=== PATIENT | female | born 1950 | race African-American/Black ===

== ENCOUNTER 2021-10-23 10:29 | Emergency (ER) | payer BC ==
--- OUTSIDE RECORDS SUMMARY | 2021-10-23 10:34 | XMS REPORT | Continuity of Care Document ---
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 weeks, then twice weekly for four weeks Clobetasol Yes [id number] Apply a Macie Propionate 5-03 small Seybold 0.05 % 00:00: amount to apply 00 affected externally area at Ointment night for four weeks, then every other night for four weeks, then twice weekly for four weeks Clobetasol Yes [id number] Apply a Macie Propionate 5-03 small Seybold 0.05 % 00:00: amount to apply 00 affected externally area at Ointment night for four weeks, then every other night for four weeks, then twice weekly for four weeks Clobetasol Yes [id number] Apply a Macie Propionate 5-03 small Seybold 0.05 % 00:00: amount to apply 00 affected externally area at Ointment night for four weeks, then every other night for four weeks, then twice weekly for four weeks Clobetasol Yes [id number] Apply a Macie Propionate 5-03 small Seybold 0.05 % 00:00: amount to apply 00 affected externally area at Ointment night for four weeks, then every other night for four weeks, then twice weekly for four weeks Metformin Yes [id number] 1000mg Take 2 Macie HCl ER 500 4-05 tablets Seybol d MG oral 00:00: (1,000 mg TABLET SR 00 total) by 24 HR mouth 2 times daily (before meals) Metformin Yes [id number] 1000mg Take 2 Macie HCl ER 500 4-05 tablets Seybol d MG oral 00:00: (1,000 mg TABLET SR 00 total) by 24 HR mouth 2 times daily (before meals) Metformin 2021- No [id number] 1000mg Take 2 Macie HCl ER 500 4-05 01-07 tablets Seybo ld MG oral 00:00: 00:00 (1,000 mg TABLET SR 00 :00 total) by 24 HR mouth 2 times daily (before meals) Atenolol 50 Yes [id number] 50mg Take 1 Macie MG oral 3-23 tablet (50 Seybol d Tablet 00:00: mg total) 00 by mouth daily Clonidine Yes [id number] .1mg Take 1 Ke lsey HCl 0.1 MG 3-23 tablet Seybold oral Tablet 00:00: (0.1 mg 00 total) by mouth nightly NIFEdipine Yes [id number] 30mg Take 1 K elsey CR Osmotic 3-23 tablet (30 Sey bold 30 MG oral 00:00: mg total) TABLET SR 00 by mouth 24 HR daily Atenolol 50 Yes [id number] 50mg Take 1 Macie MG oral 3-23 tablet (50 Seybol d Tablet 00:00: mg total) 00 by mouth daily Clonidine Yes [id number] .1mg Take 1 Ke lsey HCl 0.1 MG 3-23 tablet Seybold oral Tablet 00:00: (0.1 mg 00 total) by mouth nightly NIFEdipine Yes [id number] 30mg Take 1 K elsey CR Osmotic 3-23 tablet (30 Sey bold 30 MG oral 00:00: mg total) TABLET SR 00 by mouth 24 HR daily Atenolol 50 Yes [id number] 50mg Take 1 Macie MG oral 3-23 tablet (50 Seybol d Tablet 00:00: mg total) 00 by mouth daily Clonidine Yes [id number] .1mg Take 1 Ke lsey HCl 0.1 MG 3-23 tablet Seybold oral Tablet 00:00: (0.1 mg 00 total) by mouth nightly Levothyroxi Yes [id number] 50ug Take 1 Macie ne Sodium 3-23 tablet (50 Seyb old 50 MCG oral 00:00: mcg total) Tablet 00 by mouth daily Lisinopril Yes [id number] 40mg Take 1 K elsey 40 MG oral 3-23 tablet (40 Sey bold Tablet 00:00: mg total) 00 by mouth daily NIFEdipine Yes [id number] 30mg Take 1 K elsey CR Osmotic 3-23 tablet (30 Sey bold 30 MG oral 00:00: mg total) TABLET SR 00 by mouth 24 HR daily Pravastatin Yes [id number] 10mg Take 1 Macie Sodium 10 3-23 tablet (10 Seyb old MG oral 00:00: mg total) Tablet 00 by mouth daily Atenolol 50 Yes [id number] 50mg Take 1 Macie MG oral 3-23 tablet (50 Seybol d Tablet 00:00: mg total) 00 by mouth daily Clonidine Yes [id number] .1mg Take 1 Ke lsey HCl 0.1 MG 3-23 tablet Seybold oral Tablet 00:00: (0.1 mg 00 total) by mouth nightly Levothyroxi Yes [id number] 50ug Take 1 Macie ne Sodium 3-23 tablet (50 Seyb old 50 MCG oral 00:00: mcg total) Tablet 00 by mouth daily Lisinopril Yes [id number] 40mg Take 1 K elsey 40 MG oral 3-23 tablet (40 Sey bold Tablet 00:00: mg total) 00 by mouth daily NIFEdipine Yes [id number] 30mg Take 1 K elsey CR Osmotic 3-23 tablet (30 Sey bold 30 MG oral 00:00: mg total) TABLET SR 00 by mouth 24 HR daily Pravastatin Yes [id number] 10mg Take 1 Macie Sodium 10 3-23 tablet (10 Seyb old MG oral 00:00: mg total) Tablet 00 by mouth daily Levothyroxi 2021- No [id number] 50ug Take 1 Macie ne Sodium 3-23 01-07 tablet (50 Sey bold 50 MCG oral 00:00: 00:00 mcg total) Tablet 00 :00 by mouth daily Lisinopril 2021- No [id number] 40mg Take 1 Macie 40 MG oral 3-23 01-07 tablet (40 Se ybold Tablet 00:00: 00:00 mg total) 00 :00 by mouth daily Pravastatin 2021- No [id number] 10mg Take 1 Macie Sodium 10 3-23 01-07 tablet (10 Sey bold MG oral 00:00: 00:00 mg total) Tablet 00 :00 by mouth daily Tizanidine Yes [id number] 4mg Q6H Take 1 Macie HCl 4 MG 3-04 4 tablet (4 Seybol d oral Tablet 00:00: mg total) 00 by mouth every 6 hours as needed for muscle spasms (while at home and test self for drowsiness before driving) Tizanidine 2021- No [id number] 4mg Q6H Take 1 Macie HCl 4 MG 3-04 01-04 4 tablet (4 Seybo ld oral Tablet 00:00: 00:00 mg total) 00 :00 by mouth every 6 hours as needed for muscle spasms (while at home and test self for drowsiness before driving) Glimepiride 1-0 Yes 4mg Take 1 Lashay ey 4 MG oral 1-11 tablet (4 Seybo ld Tab 00:00: mg total) 00 by mouth every morning (before breakfast) Ergocalcife 1-0 Yes [id number] Take 1 Ke lsey rol 1.25 MG 1-11 capsule Seybo ld (54468 UT) 00:00: (50,000 oral Cap 00 units total) by mouth once a week For 12 weeks. Glimepiride 2020-0 Yes 4mg Take 1 Lashay ey 4 MG oral 1-11 tablet (4 Seybo ld Tab 00:00: mg total) 00 by mouth every morning (before breakfast) Glimepiride 2020-0 2022- No 4mg Take 1 Salvador sey 4 MG oral 1-11 -07 tablet (4 Seyb old Tab 00:00: 00:00 mg total) 00 :00 by mouth every morning (before breakfast) Ergocalcife 2020-0 2022- No [id number] Take 1 K elsey rol 1.25 MG 1-11 -04 capsule Seyb old (47056 UT) 00:00: 00:00 (50,000 oral Cap 00 :00 units total) by mouth once a week For 12 weeks. Exenatide 2020-0 Yes [id number] 2mg Inject 2 Macie ER 1-05 mg into Seybold (Bydureon 00:00: the skin BCise) 2 00 once a MG/0.85ML week subcutaneou s Auto-inject or Exenatide 2020-0 Yes [id number] 2mg Inject 2 Macie ER 1-05 mg into Seybold (Bydureon 00:00: the skin BCise) 2 00 once a MG/0.85ML week subcutaneou s Auto-inject or Exenatide 2020-0 2022- No [id number] 2mg Inject 2 Macie ER 1-05 01-07 mg into Seybold (Bydureon 00:00: 00:00 the skin BCise) 2 00 :00 once a MG/0.85ML week subcutaneou s Auto-inject or Continuous 2020-0 Yes Use as Kelse y Blood Gluc 3-26 directed Seybo ld Deckhand 00:00: for (FREESTYLE 00 continuous ANALIA 14 glucose DAY READER) monitoring does not apply Device Continuous 2020-0 Yes Use as Kelse y Blood Gluc 3-26 directed Seybo ld Sensor 00:00: for (FREESTYLE 00 continuous ANALIA 14 glucose DAY SENSOR) monitoring does not with Analia apply Misc sytem Glucose 2020-0 Yes Use as Macie Blood 3-26 directed Seybold (FREESTYLE 00:00: for PRECISION 00 continuous BRANDAN TEST) glucose in vitro monitoring Strip with Analia system Ostomy 2020-0 Yes Use as Macie Supplies 3-26 directed Seybold (SKIN TAC 00:00: for ADHESIVE 00 continuous BARRIER glucose WIPE) does monitoring not apply with Analia Misc system Continuous 2020-0 Yes Use as Kelse y Blood Gluc 3-26 directed Seybo ld Deckhand 00:00: for (FREESTYLE 00 continuous ANALIA 14 glucose DAY READER) monitoring does not apply Device Continuous 2020-0 Yes Use as Kelse y Blood Gluc 3-26 directed Seybo ld Deckhand 00:00: for (FREESTYLE 00 continuous ANALIA 14 glucose DAY READER) monitoring does not apply Device Continuous 2020-0 Yes Use as Kelse y Blood Gluc 3-26 directed Seybo ld Sensor 00:00: for (FREESTYLE 00 continuous ANALIA 14 glucose DAY SENSOR) monitoring does not with Analia apply Misc sytem Glucose 2020-0 Yes Use as Macie Blood 3-26 directed Seybold (FREESTYLE 00:00: for PRECISION 00 continuous BRANDAN TEST) glucose in vitro monitoring Strip with Analia system Ostomy 2020-0 Yes Use as Macie Supplies 3-26 directed Seybold (SKIN TAC 00:00: for ADHESIVE 00 continuous BARRIER glucose WIPE) does monitoring not apply with Analia Misc system Continuous 2020-0 Yes Use as Kelse y Blood Gluc 3-26 directed Seybo ld Deckhand 00:00: for (FREESTYLE 00 continuous ANALIA 14 glucose DAY READER) monitoring does not apply Device Continuous 2020-0 Yes Use as Kelse y Blood Gluc 3-26 directed Seybo ld Sensor 00:00: for (FREESTYLE 00 continuous ANALIA 14 glucose DAY SENSOR) monitoring does not with Analia apply Misc sytem Glucose Yes Use as Macie Blood 3-26 directed Seybold (FREESTYLE 00:00: for PRECISION 00 continuous BRANDAN TEST) glucose in vitro monitoring Strip with Analia system Ostomy Yes Use as Macie Supplies 3-26 directed Seybold (SKIN TAC 00:00: for ADHESIVE 00 continuous BARRIER glucose WIPE) does monitoring not apply with Analia Misc system Continuous 2021- No Use as Lashay ey Blood Gluc 3-26 04-25 directed Seyb old Deckhand 00:00: 00:00 for (FREESTYLE 00 :00 continuous ANALIA 14 glucose DAY READER) monitoring does not apply Device Continuous 2021- No Use as Lashay ey Blood Gluc 3-26 - directed Seyb old Sensor 00:00: 00:00 for (FREESTYLE 00 :00 continuous ANALIA 14 glucose DAY SENSOR) monitoring does not with Analia apply Misc sytem Glucose 2021- No Use as Macie Blood 3-26 - directed Seybold (FREESTYLE 00:00: 00:00 for PRECISION 00 :00 continuous BRANDAN TEST) glucose in vitro monitoring Strip with Analia system Ostomy 2021- No Use as Macie Supplies 3-26 02- directed Seybol d (SKIN TAC 00:00: 00:00 for ADHESIVE 00 :00 continuous BARRIER glucose WIPE) does monitoring not apply with Analia Misc system Clotrimazol 2017-05 Yes APPLY Kelse y e-Betametha 1-21 TOPICALLY Sey bold sone 1-0.05 00:00: TO % apply 00 AFFECTED externally AREA EVERY Cream DAY NEEDED OVER VULVAR AREA Clotrimazol 2017-05- No APPLY Lashay ey e-Betametha 1-21 01-04 TOPICALLY Se ybold sone 1-0.05 00:00: 00:00 TO % apply 00 :00 AFFECTED externally AREA EVERY Cream DAY NEEDED OVER VULVAR AREA Glucose Yes [id number] As Macie Blood in 6-08 Instructed Seybo ld vitro Strip 00:00: tid 00 Glucose Yes [id number] As Macie Blood in 6-08 Instructed Seybo ld vitro Strip 00:00: tid 00 Glucose Yes [id number] As Macie Blood in 10-16 Instructed Seybo ld vitro Strip 00:00: tid 00 Glucose 2021- No [id number] As Kelse y Blood in 10-16 Instructed Seyb old vitro Strip 00:00: 00:00 tid 00 :00 Immunizations Ordered Immunization Filled Immunization Date Status Commen ts Source Name Name Liza IM (Shingrix) 2021-09-13 Completed Christian spanney Seybold 00:00:00 Influenza Virus 2020-02-01 Completed Macie Se ybold Vaccine, Quadrivalent, 00:00:00 High Dose, Age 65 And Up Pneumococcal Vaccine, 2020-02-01 Completed Salvador sey Seybold Polysaccharide 00:00:00 Influenza Virus 2020-02-01 Completed Macie Se ybold Vaccine, Quadrivalent, 00:00:00 High Dose, Age 65 And Up Pneumococcal Vaccine, 2020-02-01 Completed Salvador sey Seybold Polysaccharide 00:00:00 Influenza Virus 2020-02-01 Completed Macie Se ybold Vaccine, Quadrivalent, 00:00:00 High Dose, Age 65 And Up Pneumococcal Vaccine, 2020-02-01 Completed Salvador sey Seybold Polysaccharide 00:00:00 Influenza Virus 2020-02-01 Completed Macie Se ybold Vaccine, Quadrivalent, 00:00:00 High Dose, Age 65 And Up Pneumococcal Vaccine, 2020-02-01 Completed Salvador sey Seybold Polysaccharide 00:00:00 Influenza Virus 2020-02-01 Completed Amcie Se ybold Vaccine, Quadrivalent, 00:00:00 High Dose, Age 65 And Up Pneumococcal Vaccine, 2020-02-01 Completed Salvador sey Seybold Polysaccharide 00:00:00 Influenza Virus 2020-02-01 Completed Macie Se ybold Vaccine, Quadrivalent, 00:00:00 High Dose, Age 65 And Up Pneumococcal Vaccine, 2020-02-01 Completed Salvador sey Seybold Polysaccharide 00:00:00 Influenza Virus 2020-02-01 Completed Macie Se ybold Vaccine, Quadrivalent, 00:00:00 High Dose, Age 65 And Up Pneumococcal Vaccine, 2020-02-01 Completed Salvador sey Seybold Polysaccharide 00:00:00 Influenza Virus 2020-02-01 Completed Macie Se ybold Vaccine, Quadrivalent, 00:00:00 High Dose, Age 65 And Up Pneumococcal Vaccine, 2020-02-01 Completed Salvador sey Seybold Polysaccharide 00:00:00 Pneumococcal Vaccine, 2016-02-20 Completed Salvador sey Seybold Conjugate 13 00:00:00 Influenza Virus 2016-02-20 Completed Macie Se ybold Vaccine, High Dose, 00:00:00 Age 65 And Up Pneumococcal Vaccine, 2016-02-20 Completed Salvador sey Seybold Conjugate 13 00:00:00 Influenza Virus 2016-02-20 Completed Macie Se ybold Vaccine, High Dose, 00:00:00 Age 65 And Up Pneumococcal Vaccine, 2016-02-20 Completed Salvador sey Seybold Conjugate 13 00:00:00 Influenza Virus 2016-02-20 Completed Macie Se ybold Vaccine, High Dose, 00:00:00 Age 65 And Up Pneumococcal Vaccine, 2016-02-20 Completed Salvador sey Seybold Conjugate 13 00:00:00 Influenza Virus 2016-02-20 Completed Macie Se ybold Vaccine, High Dose, 00:00:00 Age 65 And Up Pneumococcal Vaccine, 2016-02-20 Completed Salvador sey Seybold Conjugate 13 00:00:00 Influenza Virus 2016-02-20 Completed Macie Se ybold Vaccine, High Dose, 00:00:00 Age 65 And Up Pneumococcal Vaccine, 2016-02-20 Completed Salvador sey Seybold Conjugate 13 00:00:00 Influenza Virus 2016-02-20 Completed Macie Se ybold Vaccine, High Dose, 00:00:00 Age 65 And Up Pneumococcal Vaccine, 2016-02-20 Completed Salvador sey Seybold Conjugate 13 00:00:00 Influenza Virus 2016-02-20 Completed Macie Se ybold Vaccine, High Dose, 00:00:00 Age 65 And Up Pneumococcal Vaccine, 2016-02-20 Completed Salvador sey Seybold Conjugate 13 00:00:00 Influenza Virus 2016-02-20 Completed Macie Se ybold Vaccine, High Dose, 00:00:00 Age 65 And Up Tdap- (Boostrix, 2013-06-13 Completed Macie grullonbold Adacel) 00:00:00 Shingles SQ (Zostavax) 2013-06-13 Completed Ke lsey Seybold 00:00:00 Tdap- (Boostrix, 2013-06-13 Completed Macie Ramos eybold Adacel) 00:00:00 Shingles SQ (Zostavax) 2013-06-13 Completed Ke lsey Seybold 00:00:00 Tdap- (Boostrix, 2013-06-13 Completed Macie S eybold Adacel) 00:00:00 Shingles SQ (Zostavax) 2013-06-13 Completed Ke lsey Seybold 00:00:00 Tdap- (Boostrix, 2013-06-13 Completed Macie S eybold Adacel) 00:00:00 Shingles SQ (Zostavax) 2013-06-13 Completed Ke lsey Seybold 00:00:00 Tdap- (Boostrix, 2013-06-13 Completed Macie S eybold Adacel) 00:00:00 Shingles SQ (Zostavax) 2013-06-13 Completed Ke lsey Seybold 00:00:00 Tdap- (Boostrix, 2013-06-13 Completed Macie S eybold Adacel) 00:00:00 Shingles SQ (Zostavax) 2013-06-13 Completed Ke lsey Seybold 00:00:00 Tdap- (Boostrix, 2013-06-13 Completed Macie S eybold Adacel) 00:00:00 Shingles SQ (Zostavax) 2013-06-13 Completed Ke lsey Seybold 00:00:00 Tdap- (Boostrix, 2013-06-13 Completed Macie S eybold Adacel) 00:00:00 Shingles SQ (Zostavax) 2013-06-13 Completed Ke lsey Seybold 00:00:00 Influenza Virus 2013-05-19 Completed Macie Se ybold Vaccine, Intradermal, 00:00:00 18-64 Yrs Influenza Virus 2013-05-19 Completed Macie Se ybold Vaccine, Intradermal, 00:00:00 18-64 Yrs Influenza Virus 2013-05-19 Completed Macie Se ybold Vaccine, Intradermal, 00:00:00 18-64 Yrs Influenza Virus 2013-05-19 Completed Macie Se ybold Vaccine, Intradermal, 00:00:00 18-64 Yrs Influenza Virus 2013-05-19 Completed Macie Se ybold Vaccine, Intradermal, 00:00:00 18-64 Yrs Influenza Virus 2013-05-19 Completed Macie Se ybold Vaccine, Intradermal, 00:00:00 18-64 Yrs Influenza Virus 2013-05-19 Completed Macie Se ybold Vaccine, Intradermal, 00:00:00 18-64 Yrs Influenza Virus 2013-05-19 Completed Macie Se ybold Vaccine, Intradermal, 00:00:00 18-64 Yrs Pneumococcal Vaccine, 2011-05-19 Completed Salvador sey Seybold Polysaccharide 00:00:00 Pneumococcal Vaccine, 2011-05-19 Completed Salvador sey Seybold Polysaccharide 00:00:00 Pneumococcal Vaccine, 2011-05-19 Completed Salvador sey Seybold Polysaccharide 00:00:00 Pneumococcal Vaccine, 2011-05-19 Completed Salvador sey Seybold Polysaccharide 00:00:00 Pneumococcal Vaccine, 2011-05-19 Completed Salvador sey Seybold Polysaccharide 00:00:00 Pneumococcal Vaccine, 2011-05-19 Completed Salvador sey Seybold Polysaccharide 00:00:00 Pneumococcal Vaccine, 2011-05-19 Completed Salvador sey Seybold Polysaccharide 00:00:00 Pneumococcal Vaccine, 2011-05-19 Completed Salvador sey Seybold Polysaccharide 00:00:00 Influenza Virus 2011-01-22 Completed Macie Se ybold Vaccine, age 6 months 00:00:00 and up Influenza Virus 2011-01-22 Completed Macie Se ybold Vaccine, age 6 months 00:00:00 and up Influenza Virus 2011-01-22 Completed Macie Se ybold Vaccine, age 6 months 00:00:00 and up Influenza Virus 2011-01-22 Completed Macie Se ybold Vaccine, age 6 months 00:00:00 and up Influenza Virus 2011-01-22 Completed Macie Se ybold Vaccine, age 6 months 00:00:00 and up Influenza Virus 2011-01-22 Completed Macie Se ybold Vaccine, age 6 months 00:00:00 and up Influenza Virus 2011-01-22 Completed Macie Se ybold Vaccine, age 6 months 00:00:00 and up Influenza Virus 2011-01-22 Completed Macie Se ybold Vaccine, age 6 months 00:00:00 and up Influenza Virus 2009-01-22 Completed Macie Se ybold Vaccine, age 6 months 00:00:00 and up Influenza Virus 2009-01-22 Completed Macie Se ybold Vaccine, age 6 months 00:00:00 and up Influenza Virus 2009-01-22 Completed Macie Se ybold Vaccine, age 6 months 00:00:00 and up Influenza Virus 2009-01-22 Completed Macie Se ybold Vaccine, age 6 months 00:00:00 and up Influenza Virus 2009-01-22 Completed Macie Se ybold Vaccine, age 6 months 00:00:00 and up Influenza Virus 2009-01-22 Completed Macie Se ybold Vaccine, age 6 months 00:00:00 and up Influenza Virus 2009-01-22 Completed Macie Se ybold Vaccine, age 6 months 00:00:00 and up Influenza Virus 2009-01-22 Completed Macie Se ybold Vaccine, age 6 months 00:00:00 and up Influenza Virus 2008-05-10 Completed Macie Se ybold Vaccine, age 6 months 00:00:00 and up Influenza Virus 2008-05-10 Completed Macie Se ybold Vaccine, age 6 months 00:00:00 and up Influenza Virus 2008-05-10 Completed Macie Se ybold Vaccine, age 6 months 00:00:00 and up Influenza Virus 2008-05-10 Completed Macie Se ybold Vaccine, age 6 months 00:00:00 and up Influenza Virus 2008-05-10 Completed Macie Se ybold Vaccine, age 6 months 00:00:00 and up Influenza Virus 2008-05-10 Completed Macie Se ybold Vaccine, age 6 months 00:00:00 and up Influenza Virus 2008-05-10 Completed Macie Se ybold Vaccine, age 6 months 00:00:00 and up Influenza Virus 2008-05-10 Completed Macie Se ybold Vaccine, age 6 months 00:00:00 and up Vital Signs Vital Name Observation Time Observation Value Comments Source Systolic blood pressure 2021-09-25 13:21:00 124 mm[Hg] Macie Seybold Diastolic blood 2021-09-25 13:21:00 72 mm[Hg] Salvadorse y Seybold pressure Heart rate 2021-09-25 13:21:00 83 /min Macie valderrama Body temperature 2021-09-25 13:21:00 36.83 Tamy Lashay grullon Seybpraneeth Respiratory rate 2021-09-25 13:21:00 14 /min Lashay yadi Brownybpraneeth Body height 2021-09-25 13:21:00 160 cm Macie valderrama Body weight 2021-09-25 13:21:00 76.023 kg Macie valderrama BMI 2021-09-25 13:21:00 29.69 kg/m2 Macie S eybold Oxygen saturation in 2021-09-25 13:21:00 99 /min Macie Huang Arterial blood by Pulse oximetry Systolic blood pressure 2021-09-23 13:54:00 130 mm[Hg] Macie Seybold Diastolic blood 2021-09-23 13:54:00 80 mm[Hg] Kelse y Seybold pressure Heart rate 2021-09-23 13:54:00 80 /min Macie S eybold Body temperature 2021-09-23 13:54:00 36.89 Tamy Lashay ey Seybold Respiratory rate 2021-09-23 13:54:00 17 /min Lashay ey Seybold Body height 2021-09-23 13:54:00 160 cm Macie S eybold Body weight 2021-09-23 13:54:00 75.66 kg Macie S eybold BMI 2021-09-23 13:54:00 29.55 kg/m2 Macie S eybold Respiratory rate 2021-09-12 18:21:00 16 /min Lashay ey Seybold Body height 2021-09-12 18:21:00 160 cm Macie S eybold Body weight 2021-09-12 18:21:00 76.204 kg Macie S eybold BMI 2021-09-12 18:21:00 29.76 kg/m2 Macie S eybold Systolic blood pressure 2021-09-02 19:42:00 112 mm[Hg] Macie Seybold Diastolic blood 2021-09-02 19:42:00 68 mm[Hg] Kelse y Seybold pressure Heart rate 2021-09-02 19:42:00 76 /min Macie S eybold Body temperature 2021-09-02 19:42:00 36.56 Tamy Lashay ey Seybold Respiratory rate 2021-09-02 19:42:00 16 /min Lashay ey Seybold Body height 2021-09-02 19:42:00 160 cm Macie S eybold Body weight 2021-09-02 19:42:00 76.567 kg Macie S eybold BMI 2021-09-02 19:42:00 29.90 kg/m2 Macie S eybold Systolic blood pressure 2021-07-02 17:35:00 128 mm[Hg] Macie Seybold Diastolic blood 2021-07-02 17:35:00 64 mm[Hg] Kelse y Seybold pressure Heart rate 2021-07-02 17:35:00 60 /min Macie S eybold Body temperature 2021-07-02 17:35:00 36.56 Tamy Lashay ey Seybold Respiratory rate 2021-07-02 17:35:00 16 /min Lashay ey Seybold Body height 2021-07-02 17:35:00 160 cm Macie S eybold Body weight 2021-07-02 17:35:00 74.481 kg Macie S eybold BMI 2021-07-02 17:35:00 29.09 kg/m2 Macie S eybold Systolic blood pressure 2021-05-17 15:42:00 124 mm[Hg] Macie Seybold Diastolic blood 2021-05-17 15:42:00 68 mm[Hg] Kelse y Seybold pressure Heart rate 2021-05-17 15:42:00 72 /min Macie S eybold Respiratory rate 2021-05-17 15:42:00 16 /min Lashay ey Seybold Body height 2021-05-17 15:42:00 160 cm Macie S eybold Body weight 2021-05-17 15:42:00 76.023 kg Macie S eybold BMI 2021-05-17 15:42:00 29.69 kg/m2 Macie S eybold Systolic blood pressure 2021-05-14 21:16:00 144 mm[Hg] Macie Seybold Diastolic blood 2021-05-14 21:16:00 74 mm[Hg] Kelse y Seybold pressure Heart rate 2021-05-14 21:16:00 64 /min Macie S eybold Body temperature 2021-05-14 21:16:00 37.22 Tamy Lashay ey Seybold Respiratory rate 2021-05-14 21:16:00 16 /min Lashay ey Seybold Body height 2021-05-14 21:16:00 157.5 cm Macie S eybold Body weight 2021-05-14 21:16:00 75.751 kg Macie grullonbosarkis BMI 2021-05-14 21:16:00 30.54 kg/m2 Macie grullonbosarkis Systolic blood pressure 2021-04-29 15:06:00 120 mm[Hg] Macie Huang Diastolic blood 2021-04-29 15:06:00 60 mm[Hg] Kelse y Seybold pressure Heart rate 2021-04-29 15:06:00 61 /min Macie valderrama Body temperature 2021-04-29 15:06:00 36.67 Tamy Lashay Huang Respiratory rate 2021-04-29 15:06:00 18 /min Lashay Huang Body height 2021-04-29 15:06:00 157.5 cm Macie grullonbosarkis Body weight 2021-04-29 15:06:00 75.025 kg Macie grullonbosarkis BMI 2021-04-29 15:06:00 30.25 kg/m2 Macie valderrama Procedures Procedure Date / Time Performed Performing Clinician Sour e REAGENT STRIP/BLOOD GLUCOSE 2021-05-17 15:42:00 Outside, Reporte ying Macie Huang Encounters Start End Encounter Admission Attending Care Care Encounter Source Date/Time Date/Time Type Type Clinicians Facility Department ID 2022-01-06 2022-01-06 Outpatient MACIE SHEPHERD [id number] Macie 16:45:00 16:45:00 AZUL Seybol d 2021-10-31 2021-10-31 Outpatient MACIE MURRAY [id number] Macie 07:30:00 07:30:00 KRYSTINA Seybol d 2021-10-24 2021-10-24 Outpatient MACIE GARRIDO [id number] Macie 08:30:00 08:30:00 BABYLYN Seybol d 2021-10-23 2021-10-23 Outpatient MACIE CRAIN [id number] Macie 09:00:00 09:00:00 JEFRY Seybol d 2021-10-23 2021-10-23 Outpatient MACIE MURRAY [id number] Macie 07:30:00 07:30:00 KRYSTINA Seybol d 2021-10-23 2021-10-23 Outpatient TREVORMACIE [id number] Macie 00:00:00 00:00:00 KRYSTINA Seybol d 2021-10-23 2021-10-23 Outpatient MACIE CRAIN [id number] Macie 00:00:00 00:00:00 JEFRY Seybol d 2021-10-22 2021-10-22 Outpatient MACIE MORALES [id number] Macie 00:00:00 00:00:00 TECELIA Seybol d 2021-10-16 2021-10-16 Outpatient MACIE MORALES [id number] Macie 00:00:00 00:00:00 TECELIA Seybol d 2021-10-14 2021-10-14 Outpatient MACIE COLLINS [id number] Macie 10:00:00 10:00:00 LESLI Reddy bold 2021-10-09 2021-10-09 Outpatient MACIE MORALES [id number] Macie 00:00:00 00:00:00 TECELIA Seybol d 2021-10-08 2021-10-08 Outpatient MACIE GARRIDO [id number] Macie 00:00:00 00:00:00 BABYLYN Seybol d 2021-10-03 2021-10-03 Outpatient LYN HENRY [id number] Macie 00:00:00 00:00:00 MD MG Seybol d 2021-09-30 2021-09-30 Outpatient MACIE COLLINS [id number] Macie 10:00:00 10:00:00 LESLI Reddy bold 2021-09-25 2021-09-25 Outpatient LAB90 MACIE HENRY [id number] Macie 09:00:00 09:00:00 Seybol d 2021-09-25 2021-09-25 Office Roshan Crain [id number] Macie 08:15:00 08:45:00 Visit Jefry Solares [id number] Se ramona Pryor [id number] 2021-09-23 2021-09-23 Outpatient LAB45 MACIE HENRY [id number] Macie 09:25:00 09:25:00 Seybol d 2021-09-23 2021-09-23 Office CarlosJENNIFER wheatley MACK [id number] Macie 08:45:00 09:00:00 Visit Pepe TORRES & 350.1..13 ybold DIAGNOSJESSICA [id number] [facility] [id number] 2021-09-23 2021-09-23 Outpatient MACIE PADRON [id number] Macie 00:00:00 00:00:00 PEPE Seybol d 2021-09-20 2021-09-20 Outpatient MACIE GARRIDO [id number] [place] 08:30:00 08:30:00 BABYLYN Seybol d 2021-09-20 2021-09-20 Outpatient MACIE PHILLIP [id number] [place] 00:00:00 00:00:00 TROISHEL Seybo ld 2021-09-18 2021-09-18 Outpatient MACIE MURRAY [id number] [place] 07:45:00 07:45:00 KRYSTINA Seybol d 2021-09-18 2021-09-18 Outpatient MACIE MURRAY [id number] [place] 07:30:00 07:30:00 KRYSTINA Seybol d 2021-09-17 2021-09-17 Outpatient MACIE MURRAY [id number] [place] 08:00:00 08:00:00 KRYSTINA Seybol d 2021-09-12 2021-09-12 Office KASSANDRA Cortez [id number] [place] 13:10:00 13:20:00 Visit Travis VALE 350.1..13 S jannie [id number] 2021-09-03 2021-09-03 Outpatient MACIE GARRIDO [id number] [place] 11:00:00 11:00:00 BABYLYN Seybol d 2021-09-02 2021-09-02 Office ADALI Shepherd [id number] [place] 14:45:00 15:00:00 Visit Azul D [id number] Se ybold [id number] 2021-09-02 2021-09-02 Outpatient LAB90 MACIE HENRY [id number] [place] 08:35:00 08:35:00 Seybol d 2021-08-27 2021-08-27 Outpatient MACIE JUAREZ [id number] [place] 08:30:00 08:30:00 LADI Seybol d 2021-08-27 2021-08-27 Outpatient LYN HENRY [id number] [place] 00:00:00 00:00:00 MD MG Seybol d 2021-08-26 2021-08-26 Outpatient MACIE JUAREZ [id number] [place] 11:00:00 11:00:00 LADI Seybol d 2021-08-22 2021-08-22 Outpatient MACIE MURRAY [id number] [place] 08:00:00 08:00:00 KRYSTINA Seybol d 2021-08-14 2021-08-14 Outpatient MACIE SHEPHERD [id number] [place] 11:15:00 11:15:00 AZUL Seybol d 2021-08-06 2021-08-06 Outpatient MACIE ROSENBERG [id number] [place] 00:00:00 00:00:00 PATY Seybol d 2021-08-05 2021-08-05 Outpatient LYN HENRY [id number] [place] 00:00:00 00:00:00 MD MG Seybol d 2021-07-30 2021-07-30 Outpatient HIPOLITO HENRY [id number] [place] 09:00:00 09:00:00 MY, Seybol d SINA 2021-07-26 2021-07-26 Outpatient MACIE MURRAY [id number] [place] 00:00:00 00:00:00 KRYSTINA Seybol d 2021-07-26 2021-07-26 Outpatient TREVORMACIE Mayes [id number] [place] 00:00:00 00:00:00 KRYSTINA Seybol d 2021-07-24 2021-07-24 Outpatient MACIE SAMANIEGO [id number] [place] 12:45:00 12:45:00 SHAJUAN Seybol d 2021-07-24 2021-07-24 Outpatient MACIE SAMANIEGO [id number] [place] 00:00:00 00:00:00 SHAJUAN Seybol d 2021-07-23 2021-07-23 Outpatient MACIE GARRIDO [id number] [place] 11:00:00 11:00:00 BABYLYN Seybol d 2021-07-16 2021-07-16 Outpatient MACIE GARRIDO [id number] [place] 11:00:00 11:00:00 BABYLYN Seybol d 2021-07-15 2021-07-15 Outpatient MACIE MAGANA [id number] [place] 00:00:00 00:00:00 SHERON Seybol d 2021-07-09 2021-07-09 Outpatient MACIE SHEPHERD [id number] [place] 09:00:00 09:00:00 AZUL Seybol d 2021-07-04 2021-07-04 Outpatient HIPOLITO HENRY [id number] [place] 00:00:00 00:00:00 MY Seybol ying ANDINO 2021-07-02 2021-07-02 Office JENNIFER Saldaña [id number] [place] 11:30:00 12:00:00 Visit [facility] [id number] Seybold DIAGNOSTI [id number] [facility] [id number] 2021-07-02 2021-07-02 Outpatient ATI67-[id number] MACIE HENRY [id number] [place] 08:25:00 08:25:00 Seybol d 2021-06-17 2021-06-17 Outpatient HIPOLITO HENRY [id number] [place] 00:00:00 00:00:00 Se NAVEEDybol ying ANDINO 2021-06-17 2021-06-17 Outpatient LYN MACIE HENRY [id number] [place] 00:00:00 00:00:00 MD Sang HOLLIDAYybol d 2021-05-22 2021-05-22 Outpatient MACIE CORTEZ [id number] [place] 10:20:00 10:20:00 TRAVIS Seybol d 2021-05-17 2021-05-17 Outpatient LAB45 MACIE HENRY [id number] [place] 10:05:00 10:05:00 Seybol d 2021-05-17 2021-05-17 Office JENNIFER Shepherd [id number] [place] 09:30:00 09:45:00 Visit Azul [facility] & 350.1.13.13 Seybold DIAGNOSTI [id number] [facility] [id number] 2021-05-14 2021-05-14 Outpatient LAB45 MACIE HENRY [id number] [place] 15:50:00 15:50:00 Seybol d 2021-05-14 2021-05-14 Office JENNIFER SALDAÑA [id number] [place] 15:15:00 15:15:00 Visit [facility] 350.1.13.13 Seybold DIAGNOSTI [id number] [facility] [id number] 2021-04-29 2021-04-29 Office STEPHENIE Aguilar [id number] [place] 09:15:00 09:30:00 Visit Xi Cruz [id number] Seybold [id number] 2020-11-27 2020-11-27 Outpatient MACIE SHEPHERD [id number] [place] 14:30:00 14:30:00 AZUL Seybol d 2020-11-21 2020-11-21 Outpatient [id number]-[id number] MACIE HENRY [id number] [place] 15:30:00 15:30:00 Seybol d 2020-11-21 2020-11-21 Outpatient MACIE AGUILAR [id number] [place] 14:45:00 14:45:00 XI dockery 2020-11-21 2020-11-21 Outpatient MACIE AGUILAR [id number] [place] 00:00:00 00:00:00 XI dockery Results Test Description Test Time Test Comments Results Result Comments Source REAGENT STRIP/BLOOD GLUCOSE 2021-05-17 15:42:00 Test Item Value Reference Range Interpretation Comme nts BLOOD SUGAR (test code = 431134) 333 mg/dL 65-99 A Lab Interpretation (test code = 89543-3) Abnormal Macie Huang
[2021-10-23 11:23] LABS: Absolute Lymphocytes (CBC) 1.5 K/uL (0.7-4.9); Hematocrit 36.8 % (36.0-45.0); Lymphocytes % 15.7 % (15.3-44.8); MPV 9.1 fL (7.6-11.3); RBC Red Blood Cell Count 4.19 M/uL (3.86-4.86)
[2021-10-23] MEDS ORDERED: ONDANSETRON 4 MG/2 ML VIAL ONE (11:32)
[2021-10-23] MEDS ORDERED: FAMOTIDINE 20 MG TAB ONE (11:32)
[2021-10-23] MEDS ORDERED: NA CHLORIDE 0.9% 1,000 ML ONE (11:32)
[2021-10-23 11:37] LABS: Albumin 3.8 g/dL (3.4-5.0); Bilirubin Total 0.4 mg/dL (0.2-1.0); Potassium 4.1 mmol/L (3.5-5.1); Protein, Total 8.2 g/dL (6.4-8.2)
--- NOTE | 2021-10-23 12:12 | RAD REPORT ---
EXAM DESCRIPTION: CT - Abdomen Pelvis W Contrast - 10/23/2021 11:54 am CLINICAL HISTORY: Abdominal pain, acute, nonlocalized COMPARISON: No comparisons TECHNIQUE: Biphasic, helical CT imaging of the abdomen and pelvis was performed following 100 ml non -ionic IV contrast. No oral contrast administration. All CT scans are performed using dose optimization technique as appropriate and may include automated exposure control or mA/KV adjustment according to patient size. FINDINGS: No suspicious findings in the lung bases. The liver, spleen, and pancreas show no suspicious findings. Liver attenuation is borderline fatty in filtrated. Gallbladder and biliary tree are also without suspicious finding. Symmetric renal function is seen with no hydronephrosis or suspicious renal mass. No pyelonephritis o r acute parenchymal process. Partially filled urinary bladder shows no suspicious finding. No adrenal abnormalities. Uterus and ovaries are not identifiable and presumed surgically absent. Ovaries could be atrophic. Th ere are no adnexal abnormalities. Pelvic floor laxity is present. No dilated bowel loops or bowel wall thickening. Appendix is normal. Food and fluid distend but do no t dilate the stomach. No gastric wall thickening or mass identifiable. Boyce of the antrum are not cl early outside of normal range and there is no adjacent edema or stranding in the fatty tissues. Moder ate stool volume is present filling but not dilating the entirety of the colon. No focal colon wall m ass or wall thickening seen. No free air, free fluid or inflammatory stranding. No hernia, mass or bulky lymphadenopathy. No suspicious bony findings. Chronic degenerative and scoliotic changes are present. IMPRESSION: Contrast enhanced CT abdomen and pelvis showing no acute or emergent finding. Nonacute findings detailed in the body of the report.
--- NOTE | 2021-10-23 13:41 | ER ---
Nurse's Notes [facility] Name: Yudi Farias Age: 70 yrs Sex: Female : 1950 Arrival Date: 10/23/2021 Time: 10:31 Bed 16 Private MD: Diagnosis: Abdominal pain, Generalized Presentation: 10/23 10:34 Chief complaint: Patient states: i have nausea. its been on and off for a week. today tw2 it was the worse. i have pain in the back and shoulder pain. i feel like i need to have a BM but it has been a couple of days. Coronavirus screen: At this time, the client does not indicate any symptoms associated with coronavirus-19. Ebola Screen: Patient denies travel to an Ebola-affected area in the 21 days before illness onset. Initial Sepsis Screen: Does the patient meet any 2 criteria? No. Patient's initial sepsis screen is negative. Does the patient have a suspected source of infection? No. Patient's initial sepsis screen is negative. Risk Assessment: Do you want to hurt yourself or someone else? Patient reports no desire to harm self or others. Onset of symptoms was October 23, 2021. 10:34 Method Of Arrival: Ambulatory tw2 10:34 Acuity: MAGALYS 3 tw2 Triage Assessment: 10:38 General: Appears in no apparent distress. Behavior is calm, cooperative, appropriate tw2 for age. Pain: Complains of pain in neck and shoulder. GI: Reports constipation, nausea. Historical: - Allergies: 10:35 Talwin; tw2 - Home Meds: 10:35 Trulicity 1.5 mg/0.5 mL subcutaneous pnij 0.5 mL once wkly [Active]; metformin 500 mg tw2 Oral Tb24 1 tab once daily [Active]; clonidine HCl 0.1 mg Oral tab 1 tab once daily [Active]; nifedipine 10 mg Oral cap 1 cap once per day [Active]; Glimepiride Oral [Active]; levothyroxine oral [Active]; - PMHx: 10:35 Hypertensive disorder; Diabetes mellitus; Hypothyroidism; tw2 - PSHx: 10:35 section; tw2 - Immunization history:: Client reports receiving the 2nd dose of the Covid vaccine. - Social history:: Smoking status: Patient denies any tobacco usage or history of. Screenin:10 Abuse screen: Denies threats or abuse. Denies injuries from another. Nutritional ww screening: No deficits noted. Tuberculosis screening: No symptoms or risk factors identified. Fall Risk None identified. Assessment: 11:34 General: Appears in no apparent distress. Behavior is cooperative. Pain: Complains of ww pain in abdomen. Neuro: Level of Consciousness is awake, alert, obeys commands, Oriented to person, place, time, situation, Moves all extremities. Speech is normal. Cardiovascular: Capillary refill < 3 seconds Patient's skin is warm and dry. Respiratory: Airway is patent Respiratory effort is even, unlabored, Respiratory pattern is regular, symmetrical. GI: Abdomen is non-distended, Abd is soft Reports nausea, vomiting. : No signs and/or symptoms were reported regarding the genitourinary system. Derm: No signs and/or symptoms reported regarding the dermatologic system. Skin is intact, is healthy with good turgor. 12:40 Reassessment: Patient appears in no apparent distress at this time. No changes from ww previously documented assessment. Patient and/or family updated on plan of care and expected duration. Pain level reassessed. Patient is alert, oriented x 3, equal unlabored respirations, skin warm/dry/pink. 13:10 Reassessment: Patient appears in no apparent distress at this time. No changes from ww previously documented assessment. Patient and/or family updated on plan of care and expected duration. Pain level reassessed. Patient is alert, oriented x 3, equal unlabored respirations, skin warm/dry/pink. Vital Signs: 10:34 BP 145 / 89; Pulse 79; Resp 17; Temp 98.3(TE); Pulse Ox 100% on R/A; Weight 75.3 kg tw2 (R); Height 5 ft. 3 in. (160.02 cm); Pain 6/10; 11:15 BP 147 / 78; Pulse 76; Resp 18; Pulse Ox 100% ; ww 13:10 BP 150 / 79; Pulse 76; Resp 18; Pulse Ox 100% ; ww 10:34 Body Mass Index 29.41 (75.30 kg, 160.02 cm) tw2 ED Course: 10:31 Patient arrived in ED. rg4 10:31 Negro Whitman MD is Attending Physician. kdr 10:35 Triage completed. tw2 10:38 Arm band placed on. tw2 10:39 Selin Nance, RN is Primary Nurse. ww 11:40 Call light in reach. Pulse ox on. NIBP on. ww 11:40 Inserted saline lock: 20 gauge in left antecubital area, using aseptic technique. Blood ww collected. 11:55 CT Abd/Pelvis - IV Contrast Only In Process Unspecified. EDMS 14:04 No provider procedures requiring assistance completed. IV discontinued, intact, ww bleeding controlled, No redness/swelling at site. Pressure dressing applied. Administered Medications: 11:30 Drug: NS 0.9% 1000 ml Route: IV; Rate: 1 bolus; Site: left antecubital; 6 11:30 Drug: Zofran (Ondansetron) 4 mg Route: IVP; Site: left antecubital; 6 11:30 Drug: Pepcid (famotidine) 20 mg Route: PO; 6 Medication: 10:39 VIS not applicable for this client. tw2 Outcome: 13:40 Discharge ordered by . kdr 14:04 Discharged to home ambulatory. ww 14:04 Condition: stable 14:04 Discharge instructions given to patient, Instructed on discharge instructions, follow up and referral plans. medication usage, safety practices, Demonstrated understanding of instructions, follow-up care, medications, Prescriptions given X 1. 14:04 Patient left the ED. ww Signatures: Dispatcher [employer] EDIN Negro Whitman MD MD kdr Nancy Whiteside, RN RN tw2 Montserrat Ferraro4 Keisha Victoria RN RN 6 Seiln Nance, RN RN ww
--- NOTE | 2021-10-23 13:41 | EDPHYS ---
Physician Documentation [facility] Name: Yudi Farias Age: 70 yrs Sex: Female : 1950 Arrival Date: 10/23/2021 Time: 10:31 Bed 16 Private MD: ED Physician Negro Whitman HPI: 10/23 14:45 This 70 yrs old Black Female presents to ER via Ambulatory with complaints of Abdominal kdr Pain, Nausea, Neck Pain, <24hrs Old, Shoulder Pain. 14:45 The patient presents to the emergency department with nausea, that is mild, abdominal kdr pain, of the abdomen diffusely. Onset: The symptoms/episode began/occurred gradually, 1 week(s) ago. Possible causes: unknown. The symptoms are aggravated by nothing. The symptoms are alleviated by nothing. Associated signs and symptoms: The patient has no apparent associated signs or symptoms. Severity of symptoms: At their worst the symptoms were mild in the emergency department the symptoms are unchanged. The patient has not experienced similar symptoms in the past. Patient states that she has been ill for about a week. Specifically she has had nausea intermittently during that period of time. She is also felt like she had to have a bowel movement but it been unable to go for the last couple of days. He does not appear acutely ill on initial presentation and does not require immediate intervention.. Historical: - Allergies: 10:35 Talwin; tw2 - Home Meds: 10:35 Trulicity 1.5 mg/0.5 mL subcutaneous pnij 0.5 mL once wkly [Active]; metformin 500 mg tw2 Oral Tb24 1 tab once daily [Active]; clonidine HCl 0.1 mg Oral tab 1 tab once daily [Active]; nifedipine 10 mg Oral cap 1 cap once per day [Active]; Glimepiride Oral [Active]; levothyroxine oral [Active]; - PMHx: 10:35 Hypertensive disorder; Diabetes mellitus; Hypothyroidism; tw2 - PSHx: 10:35 section; tw2 - Immunization history:: Client reports receiving the 2nd dose of the Covid vaccine. - Social history:: Smoking status: Patient denies any tobacco usage or history of. ROS: 14:45 Constitutional: Negative for fever, chills, and weight loss, Eyes: Negative for injury, kdr pain, redness, and discharge, ENT: Negative for injury, pain, and discharge, Neck: Negative for injury, pain, and swelling, Cardiovascular: Negative for chest pain, palpitations, and edema, Respiratory: Negative for shortness of breath, cough, wheezing, and pleuritic chest pain, Back: Negative for injury and pain, : Negative for injury, bleeding, discharge, and swelling, MS/Extremity: Negative for injury and deformity, Skin: Negative for injury, rash, and discoloration, Neuro: Negative for headache, weakness, numbness, tingling, and seizure activity. Psych: Negative for depression, anxiety, suicide ideation, homicidal ideation, and hallucinations, Allergy/Immunology: Negative for hives, rash, and allergies, Endocrine: Negative for neck swelling, polydipsia, polyuria, polyphagia, and marked weight changes, Hematologic/Lymphatic: Negative for swollen nodes, abnormal bleeding, and unusual bruising. 14:45 Abdomen/GI: Positive for abdominal pain, nausea, Negative for vomiting, diarrhea, constipation, abdominal cramps, abdominal distension, anorexia, dysphagia, hematemesis, black/tarry stool, rectal pain, rectal bleeding. Exam: 14:45 Constitutional: This is a well developed, well nourished patient who is awake, alert, kdr and in no acute distress. Head/Face: Normocephalic, atraumatic. Eyes: Pupils equal round and reactive to light, extra-ocular motions intact. Lids and lashes normal. Conjunctiva and sclera are non-icteric and not injected. Cornea within normal limits. Periorbital areas with no swelling, redness, or edema. Neck: Trachea midline, no thyromegaly or masses palpated, and no cervical lymphadenopathy. Supple, full range of motion without nuchal rigidity, or vertebral point tenderness. No Meningismus. Chest/axilla: Normal chest wall appearance and motion. Nontender with no deformity. No lesions are appreciated. Cardiovascular: Regular rate and rhythm with a normal S1 and S2. No gallops, murmurs, or rubs. Normal PMI, no JVD. No pulse deficits. Respiratory: Lungs have equal breath sounds bilaterally, clear to auscultation and percussion. No rales, rhonchi or wheezes noted. No increased work of breathing, no retractions or nasal flaring. Abdomen/GI: Soft, non-tender, with normal bowel sounds. No distension or tympany. No guarding or rebound. No evidence of tenderness throughout. Back: No spinal tenderness. No costovertebral tenderness. Full range of motion. Skin: Warm, dry with normal turgor. Normal color with no rashes, no lesions, and no evidence of cellulitis. MS/ Extremity: Pulses equal, no cyanosis. Neurovascular intact. Full, normal range of motion. Neuro: Awake and alert, GCS 15, oriented to person, place, time, and situation. Cranial nerves II-XII grossly intact. Motor strength 5/5 in all extremities. Sensory grossly intact. Cerebellar exam normal. Normal gait. Psych: Awake, alert, with orientation to person, place and time. Behavior, mood, and affect are within normal limits. Vital Signs: 10:34 BP 145 / 89; Pulse 79; Resp 17; Temp 98.3(TE); Pulse Ox 100% on R/A; Weight 75.3 kg tw2 (R); Height 5 ft. 3 in. (160.02 cm); Pain 6/10; 11:15 BP 147 / 78; Pulse 76; Resp 18; Pulse Ox 100% ; ww 13:10 BP 150 / 79; Pulse 76; Resp 18; Pulse Ox 100% ; ww 10:34 Body Mass Index 29.41 (75.30 kg, 160.02 cm) tw2 MDM: 13:40 Patient medically screened. kdr 14:45 Data reviewed: vital signs, nurses notes, lab test result(s), radiologic studies. kdr Counseling: I had a detailed discussion with the patient and/or guardian regarding: the historical points, exam findings, and any diagnostic results supporting the discharge/admit diagnosis, lab results, radiology results, the need for outpatient follow up. 10/23 10:41 Order name: CBC with Diff; Complete Time: 11:26 kdr 10/23 10:41 Order name: CMP; Complete Time: 13:03 kdr 10/23 10:41 Order name: Lipase; Complete Time: 13:03 kdr 10/23 11:22 Order name: CT Abd/Pelvis - IV Contrast Only; Complete Time: 13:03 kdr 10/23 10:41 Order name: IV Saline Lock; Complete Time: 11:16 kdr 10/23 10:41 Order name: Labs collected and sent; Complete Time: 11:16 kdr Administered Medications: 11:30 Drug: NS 0.9% 1000 ml Route: IV; Rate: 1 bolus; Site: left antecubital; 6 11:30 Drug: Zofran (Ondansetron) 4 mg Route: IVP; Site: left antecubital; 6 11:30 Drug: Pepcid (famotidine) 20 mg Route: PO; [id number] Disposition Summary: 10/23/21 13:40 Discharge Ordered Location: Home kdr Problem: new kdr Symptoms: have improved kdr Condition: Stable kdr Diagnosis - Abdominal pain, Generalized kdr Followup: kdr - With: Private Physician - When: 2 - 3 days - Reason: If symptoms return, Further diagnostic work-up, Recheck today's complaints, Continuance of care, Re-evaluation by your physician Discharge Instructions: - Discharge Summary Sheet kdr - Abdominal Pain, Adult, [id number] kdr Forms: - Medication Reconciliation Form kdr - Thank You Letter kdr Prescriptions: - Zofran 4 mg Oral Tablet - take 1 tablet by ORAL route every 4-6 hours As needed; 12 tablet; Refills: 0, kdr Product Selection Permitted Signatures: Dispatcher [employer] Negro Granados MD MD kdr Nancy Whiteside RN RN tw2 [facility] Center[facility] val[facility] RN RN [id number]
[2021-10-23 14:11] VITALS: TEMP 98.3; O2SAT 100
[2021-10-23 14:16] VITALS: BP 150/79
== END 2021-10-23 14:04 | disposition home or self-care (01) ==
LOC: ER 10:29
DX: R10.84 Generalized abdominal pain (principal); R11.0 Nausea; M54.2 Cervicalgia; E11.9 Type 2 diabetes mellitus without complications; I10 Essential (primary) hypertension; E03.9 Hypothyroidism, unspecified; Z79.4 Long term (current) use of insulin; Z88.6 Allergy status to analgesic agent
CPT/HCPCS: 85025; 36415; 83690; 80053; 74177; Q9967; J7030; J2405